=== PATIENT | female | born 2000 | race Two or more races ===

== ENCOUNTER 2022-02-11 20:03 | Emergency (ER) | payer OTHER ==
[2022-02-11] MEDS ORDERED: IBUPROFEN 800 MG TABLET PO STA (20:32)
--- NOTE | 2022-02-11 21:11 | XRAY Report ---
PROCEDURE: Ankle 3 View LT INDICATIONS: Twisted L ankle, c/o pain swelling. TECHNIQUE: 3 views of the ankle were acquired. COMPARISON: None FINDINGS: Bones: There is a subtle cortical irregularity involving the distal, medial margin of the fibula seen only on the frontal view. Otherwise, no definite acute fracture seen in the left ankle. Normal align ment. Joint spaces are maintained. Ankle mortise is normally aligned. No suspicious bony lesions. Soft tissues: No tibiotalar joint effusion. Achilles tendon appears normal. There is lateral malle olus soft tissue swelling. IMPRESSION: Subtle, cortical regularity involving the distal, medial margin of the fibula which may be artifactual versus a nondisplaced fracture. There is overlying soft tissue swelling of the lateral malleolus. Recommend immobilization and repeat imaging in 10-14 days. Reviewed by: Bentley Carpenter MD on 02/11/2022 9:10 PM PDT Approved by: Bentley Carpenter MD on 02/11/2022 9:10 PM PDT Station ID: [id number]
--- NOTE | 2022-02-11 21:12 | XRAY Report ---
PROCEDURE: Foot 3 View LT INDICATIONS: L foot xray TECHNIQUE: 3 views of the foot were acquired. COMPARISON: None FINDINGS: Bones: No fractures or dislocations. No suspicious bony lesions. Soft tissues: No tibiotalar joint effusion. Achilles tendon appears normal. IMPRESSION: Left foot without acute fracture or dislocation. If there is persistent clinical concern for a radiographically occult fracture, recommend immobilizat ion and repeat imaging in 10 to 14 days. Reviewed by: Bentley Carpenter MD on 02/11/2022 9:10 PM PDT Approved by: Bentley Carpenter MD on 02/11/2022 9:10 PM PDT Station ID: [id number]
--- NOTE | 2022-02-11 21:29 | ED Physician Documentation ---
PD HPI LOWER EXT INJURY - Stated complaint Stated Complaint: LT ANKLE PX - Chief complaint Chief Complaint: Trauma Ext - History obtained from History obtained from: Patient - History of Present Illness PD HPI LOW EXT INJURY LOCATION: Left, Ankle, Foot Pain level max: 9 Pain level now: 6 Improved by: Rest Worsened by: Moving, Palpating Associated symptoms: Swelling. No: Weakness, Numbness, Tingling Contributing factors: No: Anticoagulated, Prior ortho surgery - Additional information Additional information: Patient is a 21-year-old female who presents to the emergency department complaint of left ankle pain. 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 She states that today she was stepping out of her work boots when she stumbled and caused pain to the left ankle. Worse with movement, better with rest. Noted swelling. Review of Systems Constitutional: denies: Fever GI: denies: Vomiting, Diarrhea : denies: Now EGA Skin: denies: Rash PD PAST MEDICAL HISTORY - Past Medical History Past Medical History: No - Past Surgical History Past Surgical History: No - Present Medications Home Medications: Ambulatory Orders Medication Instructions Recorded Confirmed No Known Home Medications 02/11/22 02/11/22 - Allergies Allergies/Adverse Reactions: Allergies Allergy/AdvReac Type Severity Reaction Status Date / Time No Known Drug Allergies Allergy Verified 02/11/22 20:11 - Social History Does the pt smoke?: No Smoking Status: Never smoker Does the pt drink ETOH?: No Does the pt have substance abuse?: No - Immunizations Immunizations are current?: Yes PD ED PE NORMAL - Vitals Vital signs reviewed: Yes - General General: Alert and oriented X 3, No acute distress - HEENT HEENT: Moist mucous membranes - Neck Neck: Supple, no meningeal sign - Respiratory Respiratory: No respiratory distress - Derm Derm: Warm and dry - Extremities Extremities: Other (Tender to palpation over the medial malleolus of the left ankle. Also mild tenderness over the medial aspect of the foot. Mild tenderness over the lateral malleolus as well. Mild swelling. Neurovascularly intact. Otherwise normal examination of the left lower extremity, foot and ankle.) - Neuro Neuro: Alert and oriented X 3 Results - Vitals Vitals: Vital Signs - 24 hr 02/11/22 20:08 Temperature 36.6 C Heart Rate 97 Respiratory 16 Rate Blood Pressure 122/83 H O2 Saturation 100 Oxygen O2 Source Room air - Rads (name of study) Left ankle x-ray Radiology: Final report received, EMP read contemporaneously, See rad report L foot xray Radiology: Final report received, EMP read contemporaneously, See rad report Procedures - Splint (location) L ankle/foot Splint applied by: Physician, Tech Type of splint: Short leg, Posterior Other: Patient tolerated well, No complications, Neurovascular intact, Crutches provided PD MEDICAL DECISION MAKING - ED course Complexity details: reviewed results, re-evaluated patient, considered differential, d/w patient ED course: 21-year-old female presents with left ankle pain. Initial injury was in November, reinjured tonight. Possible subtle cortical irregularity of the medial aspect of the left fibula. We will treat as potential nondisplaced fracture. Placed in a short leg posterior splint. We will have her follow-up with orthopedics for further care. Pain well controlled with Motrin. Patient counseled regarding signs and symptoms for which I believe and urgent re- evaluation would be necessary. Patient with good understanding of and agreement to plan and is comfortable going home at this time This document was made in part using voice recognition software. While efforts are made to proofread this document, sound alike and grammatical errors may occur. IMPRESSION: Subtle, cortical regularity involving the distal, medial margin of the fibula which may be artifactual versus a nondisplaced fracture. There is overlying soft tissue swelling of the lateral malleolus. Recommend immobilization and repeat imaging in 10-14 days. IMPRESSION: Left foot without acute fracture or dislocation. If there is persistent clinical concern for a radiographically occult fracture, recommend immobilization and repeat imaging in 10 to 14 days. Departure - Departure Disposition: 01 Home, Self Care Clinical Impression: Ankle injury Qualifiers: Encounter type: initial encounter Laterality: left Qualified Code(s): S99.912A - Unspecified injury of left ankle, initial encounter Condition: Good Instructions: ED Fx Ankle Lateral Malleolus Follow-Up: [facility] [Provider Group] - Within 1 week Comments: Stay in the splint and on crutches until released by orthopedics. On your x-ray there is a subtle cortical irregularity involving the distal, medial margin of the fibula which may be artifactual versus nondisplaced fracture. There is soft tissue swelling as well. Recommend repeat x-ray in 10 to 14 days. I would use Motrin or Tylenol as needed for pain.
[2022-02-11 22:07] VITALS: BP 120/78
== END 2022-02-11 22:07 | disposition home or self-care (01) ==
LOC: ED 20:03
DX: M25.572 Pain in left ankle and joints of left foot (principal)
CPT/HCPCS: 29515; 73610; 73630; 99283; 99284; A9270

== ENCOUNTER 2023-06-09 18:38 | Emergency (ER) | payer OTHER ==
[2023-06-09 18:45] VITALS: BP 126/74; O2SAT 97
--- NOTE | 2023-06-09 19:50 | ED Physician Documentation ---
PD HPI BACK PAIN - Stated complaint Stated Complaint: BACK PX - Chief complaint Chief Complaint: Back Pain - History obtained from History obtained from: Patient - History of Present Illness Timing - onset: How many weeks ago (1) Timing - duration: Weeks (1) Timing - details: Gradual onset Pain level max: 6 Pain level now: 6 Location: Lower, Right Quality: Pain, Spasm, Similar to prior episodes Associated symptoms: No: Fever, Weakness, Numbness, Incontinent of urine, Unable to urinate, Hematuria, Incontinent of stool Improves with: Rest Worsened by: Movement, Twisting Contributing factors: Lifting. No: Trauma, Anticoagulated, Cancer, IVDA, Out of meds - Additional information Additional information: Patient is a 23-year-old female who presents to the emergency department with ongoing back pain for the past week. 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 No loss of bowel or bladder control. No trauma. No numbness or tingling. Worse with movement, better with rest. [place] states [place] said that if she still has pain in a few days she should go to the ER. Patient is not , breast-feeding or trying to become . Review of Systems Constitutional: denies: Fever, Chills : denies: Dysuria, Frequency, Hesitancy, Now EGA Skin: denies: Rash PD PAST MEDICAL HISTORY - Past Medical History Past Medical History: No - Past Surgical History Past Surgical History: No - Present Medications Home Medications: Ambulatory Orders Medication Instructions Recorded Confirmed Meloxicam [Mobic] 7.5 mg PO BID PRN #20 tablet 06/09/23 methocarbamoL [Robaxin] 500 mg PO Q6H PRN #20 tablet 06/09/23 - Allergies Allergies/Adverse Reactions: Allergies Allergy/AdvReac Type Severity Reaction Status Date / Time No Known Drug Allergies Allergy Verified 06/09/23 18:41 - Social History Does the pt smoke?: No Smoking Status: Never smoker Does the pt drink ETOH?: No Does the pt have substance abuse?: No - Immunizations Immunizations are current?: Yes PD ED PE NORMAL - Vitals Vital signs reviewed: Yes - General General: Alert and oriented X 3, No acute distress - HEENT HEENT: Moist mucous membranes - Neck Neck: Supple, no meningeal sign - Cardiac Cardiac: RRR, Strong equal pulses - Respiratory Respiratory: No respiratory distress, Clear bilaterally - Abdomen Abdomen: Soft, Non tender, Non distended - Back Back: No spinal TTP (No midline tenderness to palpation or percussion. No step- off or deformity. Paraspinal spasm right low lumbar. Reproduces her pain.) - Derm Derm: Warm and dry - Extremities Extremities: No edema - Neuro Neuro: Alert and oriented X 3, No motor deficit, No sensory deficit, Other (Normal bilateral lower extremity patellar and ankle jerk reflexes. Normal great toe extension bilaterally. no saddle anesthesia) - Psych Psych: Normal mood, Normal affect Results - Vitals Vitals: Vital Signs - 24 hr 06/09/23 18:41 Temperature 36.5 C Heart Rate 80 Respiratory 16 Rate Blood Pressure 126/74 O2 Saturation 97 Oxygen O2 Source Room air PD Medical Decision Making - ED course Complexity details: considered differential (No cauda equina, no spinal epidural abscess, no fracture, no aortic dissection or evidence of aneursym rupture), d/w patient ED course: 23-year-old female with what appears to be a back strain, likely from lifting heavy objects at work. Has paraspinal spasm on exam. Will place on anti-infla mmatories and muscle relaxants. No evidence of cauda equina, epidural abscess. No indication for emergent neuroimaging. No focal neurological deficits. Patient counseled regarding signs and symptoms for which I believe and urgent re-evaluation would be necessary. Patient with good understanding of and agreement to plan and is comfortable going home at this time This document was made in part using voice recognition software. While efforts are made to proofread this document, sound alike and grammatical errors may occur. Departure - Departure Disposition: 01 Home, Self Care Clinical Impression: Back strain Qualifiers: Encounter type: initial encounter Qualified Code(s): S39.012A - Strain of muscle, fascia and tendon of lower back, initial encounter Condition: Good Instructions: ED Sprain Strain Lumbar Follow-Up: [facility] [Provider Group] - Within 1 week Prescriptions: Meloxicam [Mobic] 7.5 mg PO BID PRN #20 tablet PRN Reason: Pain methocarbamoL [Robaxin] 500 mg PO Q6H PRN #20 tablet PRN Reason: muscle spasm Comments: Your prescriptions were sent to the [facility] pharmacy. You can use the medic ations as needed at home for pain. Please follow-up with your doctor for further care. Do not drive or operate heavy machinery while taking the Robaxin. Forms: Activity restrictions Discharge Date/Time: 06/09/23 20:12
[2023-06-09] MEDS: KETOROLAC 60 MG/2 ML VIAL IM STA (19:54)
[2023-06-09] MEDS: methocarbamoL 500 MG TABLET PO STA (19:55)
== END 2023-06-09 20:12 | disposition home or self-care (01) ==
LOC: ED 18:38
DX: S39.012A Strain of muscle, fascia and tendon of lower back, initial encounter (principal); X58.XXXA Exposure to other specified factors, initial encounter
CPT/HCPCS: 96372; 99283

== ENCOUNTER 2024-01-26 08:04 | Emergency (ER) | payer OTHER ==
--- NOTE | 2024-01-26 08:41 | ED Physician Documentation ---
PD HPI NVD - Stated complaint Stated Complaint: STOMACH PX - Chief complaint Chief Complaint: Abd Pain - History obtained from History obtained from: Patient - History of Present Illness Timing - onset: Yesterday (early afternoon about 1 pm, being about 3 hours after eating undercooked fried chicken. No URI symptoms. Onset abd cramping, nausea, vomiting multiple times and diarrhea over a dozen times. Feeling generally weak.) Timing - details: Abrupt onset, Still present Associated symptoms: Abdominal pain, Loss of appetite. No: Fever, Near syncope / syncope Contributing factors: Bad food. No: Sick contact, Travel Similar symptoms before: Has not had sx before Recently seen: Not recently seen Review of Systems Constitutional: reports: Myalgias, Fatigue. denies: Fever, Chills Nose: denies: Rhinorrhea / runny nose, Congestion Throat: denies: Sore throat Respiratory: denies: Cough GI: reports: Abdominal Pain (intermittent moderate cramping.), Nausea, Vomiting, Diarrhea. denies: Abdominal Swelling, Hematemesis, Bloody / black stool PD PAST MEDICAL HISTORY - Past Medical History Cardiovascular: None GI: None - Past Surgical History Past Surgical History: No - Present Medications Home Medications: Ambulatory Orders Medication Instructions Recorded Confirmed Diphenoxylate/Atropine [Lomotil] 1 each PO QID PRN #12 tablet 01/26/24 HYDROcod/ACETAM 5/325 [Brewster 5/325] 1 ea PO Q6H PRN #10 tablet 01/26/24 Ondansetron Odt [Zofran] 4 mg TL Q6H PRN #10 tablet 01/26/24 - Allergies Allergies/Adverse Reactions: Allergies Allergy/AdvReac Type Severity Reaction Status Date / Time No Known Drug Allergies Allergy Verified 01/26/24 08:17 - Social History Does the pt smoke?: No Smoking Status: Never smoker Does the pt drink ETOH?: No Does the pt have substance abuse?: No - Immunizations Immunizations are current?: Yes PD ED PE NORMAL - Vitals Vital signs reviewed: Yes - General General: Alert and oriented X 3, Well developed/nourished, Other (appears uncomfortable with nausea and lower to mid abd cramping at times. ) - HEENT HEENT: Pharynx benign - Neck Neck: Supple, no meningeal sign, No adenopathy - Cardiac Cardiac: RRR, No murmur - Respiratory Respiratory: No respiratory distress, Clear bilaterally - Abdomen Abdomen: Normal bowel sounds, Soft, Non distended, No organomegaly, Other (tender without guarding nor percussion tender mid to left abd. ) - Female Female : Deferred - Rectal Rectal: Deferred - Back Back: No CVA TTP - Derm Derm: Normal color, Warm and dry - Neuro Neuro: Alert and oriented X 3, No motor deficit, Normal speech Results - Vitals Vitals: Vital Signs - 24 hr 01/26/24 01/26/24 01/26/24 08:06 09:57 11:36 Temperature 36.6 C 36.6 C Heart Rate 86 88 94 Respiratory 18 18 18 Rate Blood Pressure 106/64 110/62 97/51 L O2 Saturation 99 99 99 01/26/24 13:12 Temperature Heart Rate 96 Respiratory 18 Rate Blood Pressure 104/94 H O2 Saturation 100 Oxygen O2 Source Room air - Labs Labs: Laboratory Tests 01/26/24 01/26/24 01/26/24 08:26 08:26 08:37 WBC 14.4 H RBC 4.89 Hgb 14.9 Hct 44.6 MCV 91.2 MCH 30.5 MCHC 33.4 RDW 12.8 Plt Count 297 MPV 8.9 Neut # (Auto) 12.4 H Lymph # (Auto) 0.9 L Morgan # (Auto) 1.0 Eos # (Auto) 0.1 Baso # (Auto) 0.0 Absolute Nucleated RBC 0.00 Nucleated RBC % 0.0 Sodium Potassium Chloride Carbon Dioxide Anion Gap BUN Creatinine Estimated GFR (MDRD) Glucose Calcium Magnesium Total Bilirubin AST ALT Alkaline Phosphatase Total Protein Albumin Globulin Albumin/Globulin Ratio Lipase Urine Color YELLOW Urine Clarity CLEAR Urine pH 5.5 Ur Specific Ahmeek 1.025 Urine Protein NEGATIVE Urine Glucose (UA) NEGATIVE Urine Ketones NEGATIVE Urine Occult Blood SMALL H Urine Nitrite NEGATIVE Urine Bilirubin NEGATIVE Urine Urobilinogen 0.2 (NORMAL) Ur Leukocyte Esterase NEGATIVE Urine RBC None Seen Urine WBC 0-3 Ur Squamous Epith Cells NONE SEEN Urine Bacteria None Seen Ur Microscopic Review INDICATED Urine Culture Comments NOT INDICATED Urine HCG, Qual NEGATIVE 01/26/24 01/26/24 08:37 08:37 WBC RBC Hgb Hct MCV MCH MCHC RDW Plt Count MPV Neut # (Auto) Lymph # (Auto) Morgan # (Auto) Eos # (Auto) Baso # (Auto) Absolute Nucleated RBC Nucleated RBC % Sodium 137 Potassium 4.4 Chloride 105 Carbon Dioxide 24 Anion Gap 8.0 BUN 14 Creatinine 0.6 Estimated GFR (MDRD) 126 Glucose 92 Calcium 9.9 Magnesium 1.7 Total Bilirubin 0.8 AST 19 ALT 23 Alkaline Phosphatase 75 Total Protein 7.8 Albumin 4.7 Globulin 3.1 Albumin/Globulin Ratio 1.5 Lipase 10 L Urine Color Urine Clarity Urine pH Ur Specific Ahmeek Urine Protein Urine Glucose (UA) Urine Ketones Urine Occult Blood Urine Nitrite Urine Bilirubin Urine Urobilinogen Ur Leukocyte Esterase Urine RBC Urine WBC Ur Squamous Epith Cells Urine Bacteria Ur Microscopic Review Urine Culture Comments Urine HCG, Qual PD Medical Decision Making - ED course Complexity details: re-evaluated patient (less nausea and decreased pain. Exam still with some tenderness mid to left lower abd without guarding nor percussion tenderness. Not tender RLQ nor RUQ at all. The pattern still seems acute GE or food toxin mediated and shared discussion with pt to not do imaging at this time. ), considered differential, d/w patient Drug Therapy Requiring Monitoring for Toxicity: given IV fluids, ZOfran toradol and dilaudid intially, iwth improvement in nausea and pain but still present. Doses then of Inapsine and repeat pain meds with general improvement still. Lytes and CBC are appearing okay. Departure - Departure Disposition: 01 Home, Self Care Clinical Impression: Nausea vomiting and diarrhea, Left lower quadrant abdominal pain Condition: Stable Record reviewed to determine appropriate education?: Yes Instructions: ED Gastroenteritis Vs Food Poison Follow-Up: [facility] [Provider Group] Prescriptions: Diphenoxylate/Atropine [Lomotil] 1 each PO QID PRN #12 tablet PRN Reason: Diarrhea HYDROcod/ACETAM 5/325 [Brewster 5/325] 1 ea PO Q6H PRN #10 tablet PRN Reason: Pain Ondansetron Odt [Zofran] 4 mg TL Q6H PRN #10 tablet PRN Reason: Nausea / Vomiting Comments: Small frequent fluids and bland foods such as starches and carbohydrates usually are best with these type of symptoms. Rest and frequent fluids and small amounts initially and progress as tolerated. Ondansetron if needed for nausea. Lomotil if needed for diarrhea. Tylenol or ibuprofen if needed for pains and cramps in Tylenol may be better tolerated on the stomach. At hydrocodone/acetaminophen if needed for worse pains or cramps at times. I would anticipate needing this just for a day or so until this is more resolving. Follow-up with your primary if not resolved in the next day or 2 and return if worse or more localized pain to the right or other concerns. I sent your prescription to [facility] pharmacy. I am prescribing a short course of narcotic pain medication for you. These are potentially dangerous and addictive medications that should be used carefully. These medications may constipate you. Take an [id number] stool softener such as docusate twice daily with plenty of water while taking these medications. If you go 24 hours without a bowel movement, take [id number] MiraLAX, per package instructions. Do not drink or drive while taking these medications. If you received narcotic or sedating medications while in the emergency department do not drive for 24 hours. Store this medication in a safe, secure place and out of reach of children. It is a violation of federal law to give or sell this medication to another person or to use in a manner other than prescribed. The ED will not refill narcotic prescriptions, including prescriptions lost or stolen. You can dispose of unwanted medications at the [facility]'s office or at several pharmacies such as [facility]. Forms: PCP List, Activity restrictions Discharge Date/Time: 01/26/24 13:26
[2024-01-26 08:44] LABS: BASOPHILS % (AUTO) 0.2 %; EOSINOPHILS # (AUTO) 0.1 10^3/uL (0.0-0.7); EOSINOPHILS % (AUTO) 0.9 %; HCT - HEMATOCRIT 44.6 % (37.0-47.0); HGB - HEMOGLOBIN 14.9 g/dL (12.0-16.0); LYMPHOCYTES # (AUTO) 0.9 10^3/uL (1.5-3.5); LYMPHOCYTES % (AUTO) 6.1 %; MEAN CORPUSCULAR HEMOGLOBIN 30.5 pg (27.0-31.0); MEAN CORPUSCULAR HGB CONC 33.4 g/dL (32.0-36.0); MEAN CORPUSCULAR VOLUME 91.2 fL (81.0-99.0); MEAN PLATELET VOLUME 8.9 fL (7.9-10.8); MONOCYTES % (AUTO) 6.6 %; NEUTROPHILS # (AUTO) 12.4 10^3/uL (1.5-6.6); NEUTROPHILS % (AUTO) 85.8 %; PLT - PLATELET COUNT 297 10^3/uL (130-450); RED BLOOD COUNT 4.89 10^6/uL (4.20-5.40); RED CELL DISTRIBUTION WIDTH 12.8 % (12.0-15.0); WHITE BLOOD COUNT 14.4 x10^3/uL (4.8-10.8)
[2024-01-26 08:50] LABS: BILIRUBIN,URINE NEGATIVE (NEGATIVE); CLARITY,URINE CLEAR (CLEAR); GLUCOSE, URINE (UA) NEGATIVE (NEGATIVE); KETONES,URINE (UA) NEGATIVE (NEGATIVE); LEUKOCYTE ESTERASE, URINE NEGATIVE (NEGATIVE); NITRITE,URINE NEGATIVE (NEGATIVE); OCCULT BLOOD,URINE SMALL (NEGATIVE); PH,URINE 5.5 PH (5.0-7.5); PROTEIN,URINE NEGATIVE (NEGATIVE); UROBILINOGEN,URINE 0.2 (NORMAL) E.U./dL (NORMAL)
[2024-01-26 08:52] LABS: HCG UR QUAL NEGATIVE
[2024-01-26 09:00] LABS: ALBUMIN 4.7 g/dL (3.2-5.5); ALBUMIN/GLOBULIN RATIO 1.5 (1.0-2.2); BILIRUBIN,TOTAL 0.8 mg/dL (0.2-1.0); CALCIUM 9.9 mg/dL (8.5-10.3); CREATININE 0.6 mg/dL (0.6-1.3); POTASSIUM 4.4 mmol/L (3.5-4.5); TOTAL PROTEIN 7.8 g/dL (6.4-8.9)
[2024-01-26 09:11] LABS: BACTERIA,URINE None Seen /HPF (None Seen); RBC,URINE None Seen /HPF (0-5); SQUAMOUS EPITHELIAL CELL,UR NONE SEEN (<= Few); WBC,URINE 0-3 /HPF (0-5)
[2024-01-26] MEDS: MORPHINE 2 MG/ML CARPUJECT IVP STA (09:15)
[2024-01-26] MEDS: KETOROLAC 15 MG/ML VIAL IVP STA (09:15)
[2024-01-26] MEDS: ONDANSETRON 4 MG/2 ML VIAL IVP STA (09:16)
[2024-01-26] MEDS: SODIUM CHLORIDE 0.9% 1,000 ML IV STA ×2 (09:16→09:26)
[2024-01-26] MEDS: LOPERAMIDE 2 MG CAPSULE PO STA (09:16)
[2024-01-26] MEDS: HYDROmorphone 1 MG/ML CARPUJECT IVP STA ×2 (11:56→13:17)
[2024-01-26] MEDS: DROPERIDOL 5 MG/2 ML VIAL IVP STA (11:56)
[2024-01-26 13:26] VITALS: BP 104/94; O2SAT 100
== END 2024-01-26 13:26 | disposition home or self-care (01) ==
LOC: ED 08:04
DX: R10.32 Left lower quadrant pain (principal); R11.2 Nausea with vomiting, unspecified; R19.7 Diarrhea, unspecified; Z79.899 Other long term (current) drug therapy
CPT/HCPCS: 36415; 80053; 81001; 81025; 83690; 83735; 85025; 96374; 96375; 99283; A9270; J1170; 81003; 87086

== ENCOUNTER 2024-02-16 12:21 | Emergency (ER) | payer OTHER ==
[2024-02-16 12:29] VITALS: BP 119/66; O2SAT 98
--- NOTE | 2024-02-16 13:03 | XRAY Report ---
PROCEDURE: Finger(s) LT INDICATIONS: Trauma TECHNIQUE: AP hand, 2 views of the first finger(s) acquired. COMPARISON: None. FINDINGS: Bones: No fractures or dislocations. Joint spaces are maintained. No suspicious bony lesions. Soft tissues: No suspicious soft tissue calcifications or masses. No radiopaque foreign body. IMPRESSION: No acute bony abnormality. If pain persists with conservative management, consider repeat radiographs in 10-14 days or cross-sectional imaging. Reviewed by: Dangelo Alvarado MD on 02/16/2024 1:02 PM PDT Approved by: Dangelo Alvarado MD on 02/16/2024 1:02 PM PDT Station ID: [id number]
--- NOTE | 2024-02-16 13:05 | ED Physician Documentation ---
PD HPI UPPER EXT INJURY - Stated complaint Stated Complaint: LT HAND INJ - Chief complaint Chief Complaint: Trauma Ext - Additonal information Additional information: 22-year-old female presents here emergency department for left thumb pain. Patient says that she attempted to pop her left thumb 2 days ago and since then has been experiencing increased tenderness to the volar aspect of the thumb. 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 No fevers or chills no inflammation no dislocation no other trauma. PD PAST MEDICAL HISTORY - Past Medical History Past Medical History: Yes Cardiovascular: None Respiratory: None Neuro: None Endocrine/Autoimmune: None GI: None STRAWBERRY GROWER: None : None HEENT: None Psych: None Musculoskeletal: None Derm: Other drug resistant infections - Past Surgical History Past Surgical History: No - Present Medications Home Medications: Ambulatory Orders Medication Instructions Recorded Confirmed Diphenoxylate/Atropine [Lomotil] 1 each PO QID PRN #12 tablet 01/26/24 02/16/24 HYDROcod/ACETAM 5/325 [[place] 5/325] 1 ea PO Q6H PRN #10 tablet 01/26/24 02/16/24 Ondansetron Odt [Zofran] 4 mg TL Q6H PRN #10 tablet 01/26/24 02/16/24 - Allergies Allergies/Adverse Reactions: Allergies Allergy/AdvReac Type Severity Reaction Status Date / Time No Known Drug Allergies Allergy Verified 02/16/24 12:24 - Social History Does the pt smoke?: No Smoking Status: Never smoker Does the pt drink ETOH?: No Does the pt have substance abuse?: No - Immunizations Immunizations are current?: Yes - POLST Patient has POLST: No PD ED PE NORMAL - Vitals Vital signs reviewed: Yes - General General: Alert and oriented X 3, No acute distress, Well developed/nourished - Derm Derm: Normal color, Warm and dry, No rash - Extremities Extremities: Other (Left thumb: No inflammation, full range of motion of left thumb, no crepitus or popping with any bending of the left thumb. CMS intact, capillary refill < 2 seconds) Results - Vitals Vitals: Vital Signs - 24 hr 02/16/24 12:24 Temperature 36.3 C L Heart Rate 84 Respiratory 16 Rate Blood Pressure 119/66 O2 Saturation 98 Oxygen O2 Source Room air - Rads (name of study) Left finger x-rays Relevant Findings:: Final report received, EMP independent interpretation of test, Other (Left thumb does not show any acute bony abnormality or findings.) PD Medical Decision Making - ED course ED course: 23-year-old female presents emergency department for left thumb pain. Differentials include but not limited to, sprain, fracture, tendinitis, contusion. X-rays were complete of the left thumb and there were no acute fractures or bony abnormalities seen. I believe that pain is most likely from the tendon being overstretched or contusion. She has full range of motion to the left thumb there is no inflammation of the left thumb. Patient requested an Josue wrap to help her hand at work she was offered Tylenol and ibuprofen but kindly declined and said that she had some at home. Patient was given return precautions and told to follow-up with her primary care provider for further evaluation as needed. Departure - Departure Disposition: 01 Home, Self Care Clinical Impression: Pain of left thumb Instructions: Wrist Supination Strength Comments: Thank you for trusting us with your care. We have completed x-rays of your left thumb and we are not seeing any fractures or obvious abnormalities at this time. If you are still experiencing worsening pain after 10 days from the injury you can repeat x-rays for further evaluation of a possible fracture. At this point in time we offered you Tylenol ibuprofen but you kindly declined and said that you had some at home so we will discharge you with an Josue wrap. Make sure that you are taking this off periodically throughout the day to stretch her hand and do some gentle range of motion exercises to the left thumb. Please follow-up with your primary care provider as needed. Wishing a speedy recovery. Forms: PCP List Discharge Date/Time: 02/16/24 13:22
== END 2024-02-16 13:22 | disposition home or self-care (01) ==
LOC: ED 12:21
DX: M79.645 Pain in left finger(s) (principal)
CPT/HCPCS: 99283

== ENCOUNTER 2024-02-19 07:45 | Emergency (ER) | payer OTHER ==
--- NOTE | 2024-02-19 08:12 | ED Physician Documentation ---
PD HPI FEMALE - Stated complaint Stated Complaint: BODYACHES,WEAK - Chief complaint Chief Complaint: General - History obtained from History obtained from: Patient - History of Present Illness Timing - onset: How many days ago (4-5) Timing - duration: Days (4-5) Timing - details: Abrupt onset, Still present (feeling weak, tired, nausea, and achey for 4-5 days. Some lower abd cramping. She did home test 2 days ago that was weakly positive.) Associated symptoms: No: Fever, Vaginal bleeding, Vaginal discharge, Genital sore/lesion, Dysuria Contributing factors: (estimates 5 weeks by dates. She and spouse have been trying to get .). 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 denies: Diarrhea : reports: Dysuria, Frequency PD PAST MEDICAL HISTORY - Past Medical History Cardiovascular: None Respiratory: None Neuro: None Endocrine/Autoimmune: None GI: None PRODUCT SUPPORT SALES REPRESENTATIVE: None : None HEENT: None Psych: None Musculoskeletal: None Derm: Other drug resistant infections - Past Surgical History Past Surgical History: No - Present Medications Home Medications: Ambulatory Orders Medication Instructions Recorded Confirmed Ibuprofen [Motrin] 600 mg PO TID PRN #25 tab 02/19/24 Ondansetron Odt [Zofran] 4 mg TL Q6H PRN #10 tablet 02/19/24 cephALEXin [Keflex] 500 mg PO TID #15 cap 02/19/24 - Allergies Allergies/Adverse Reactions: Allergies Allergy/AdvReac Type Severity Reaction Status Date / Time No Known Drug Allergies Allergy Verified 02/19/24 08:30 - Social History Does the pt smoke?: No Smoking Status: Never smoker Does the pt drink ETOH?: No Does the pt have substance abuse?: No - Immunizations Immunizations are current?: Yes - POLST Patient has POLST: No PD ED PE NORMAL - Vitals Vital signs reviewed: Yes - General General: Alert and oriented X 3, No acute distress, Well developed/nourished - HEENT HEENT: Moist mucous membranes, Pharynx benign - Neck Neck: Supple, no meningeal sign - Cardiac Cardiac: RRR, No murmur - Respiratory Respiratory: Clear bilaterally - Abdomen Abdomen: Soft, Non tender - Derm Derm: Normal color, Warm and dry - Extremities Extremities: No tenderness to palpate, Normal ROM s pain - Neuro Neuro: Alert and oriented X 3, No motor deficit, No sensory deficit, Normal speech Results - Vitals Vitals: Vital Signs - 24 hr 02/19/24 02/19/24 02/19/24 08:00 10:06 12:00 Temperature 36.6 C Heart Rate 94 75 79 Respiratory 18 15 16 Rate Blood Pressure 111/64 103/62 117/66 O2 Saturation 98 99 99 02/19/24 12:13 Temperature 37.1 C Heart Rate 79 Respiratory 16 Rate Blood Pressure 117/66 O2 Saturation 99 Oxygen O2 Source Room air - Labs Labs: Laboratory Tests 02/19/24 02/19/24 02/19/24 08:10 08:33 08:37 WBC 10.2 RBC 4.49 Hgb 13.5 Hct 41.1 MCV 91.5 MCH 30.1 MCHC 32.8 RDW 12.8 Plt Count 256 MPV 8.9 Neut # (Auto) 7.3 H Lymph # (Auto) 1.5 [place] # (Auto) 1.1 H Eos # (Auto) 0.3 Baso # (Auto) 0.0 Absolute Nucleated RBC 0.00 Nucleated RBC % 0.0 Sodium Potassium Chloride Carbon Dioxide Anion Gap BUN Creatinine Estimated GFR (MDRD) Glucose Calcium Total Bilirubin AST ALT Alkaline Phosphatase Total Protein Albumin Globulin Albumin/Globulin Ratio Lipase Beta HCG, Quant Urine Color YELLOW Urine Clarity SL. CLOUDY Urine pH 7.0 Ur Specific Stark 1.010 Urine Protein NEGATIVE Urine Glucose (UA) NEGATIVE Urine Ketones NEGATIVE Urine Occult Blood NEGATIVE Urine Nitrite NEGATIVE Urine Bilirubin NEGATIVE Urine Urobilinogen 0.2 (NORMAL) Ur Leukocyte Esterase MODERATE H Urine RBC 0-5 Urine WBC 6-10 H Ur Squamous Epith Cells FEW Squamous Urine Bacteria Rare Ur Microscopic Review INDICATED Urine Culture Comments INDICATED Urine HCG, Qual Nasal Adenovirus (PCR) NOT DETECTED Nasal B. parapertussis DNA (PCR) NOT DETECTED Nasal Coronavir 229E PCR NOT DETECTED Nasal Coronavir HKU1 PCR NOT DETECTED Nasal Coronavir NL63 PCR NOT DETECTED Nasal Coronavir OC43 PCR NOT DETECTED Nasal Enterovir/Rhinovir PCR NOT DETECTED Nasal Influenza B PCR NOT DETECTED Nasal Influenza A PCR NOT DETECTED Nasal Parainfluen 1 PCR NOT DETECTED Nasal Parainfluen 2 PCR NOT DETECTED Nasal Parainfluen 3 PCR NOT DETECTED Nasal Parainfluen 4 PCR NOT DETECTED Nasal RSV (PCR) NOT DETECTED Nasal B.pertussis DNA PCR NOT DETECTED Nasal C.pneumoniae (PCR) NOT DETECTED Trevor Human Metapneumo PCR NOT DETECTED Nasal M.pneumoniae (PCR) NOT DETECTED Nasal SARS-CoV-2 (PCR) NOT DETECTED 02/19/24 02/19/24 08:37 09:06 WBC RBC Hgb Hct MCV MCH MCHC RDW Plt Count MPV Neut # (Auto) Lymph # (Auto) [place] # (Auto) Eos # (Auto) Baso # (Auto) Absolute Nucleated RBC Nucleated RBC % Sodium 136 Potassium 4.1 Chloride 104 Carbon Dioxide 26 Anion Gap 6.0 BUN 11 Creatinine 0.6 Estimated GFR (MDRD) 126 Glucose 97 Calcium 9.6 Total Bilirubin 0.6 AST 13 ALT 14 Alkaline Phosphatase 74 Total Protein 7.3 Albumin 4.6 Globulin 2.7 Albumin/Globulin Ratio 1.7 Lipase 16 Beta HCG, Quant < 0.6 Urine Color Urine Clarity Urine pH Ur Specific Stark Urine Protein Urine Glucose (UA) Urine Ketones Urine Occult Blood Urine Nitrite Urine Bilirubin Urine Urobilinogen Ur Leukocyte Esterase Urine RBC Urine WBC Ur Squamous Epith Cells Urine Bacteria Ur Microscopic Review Urine Culture Comments Urine HCG, Qual NEGATIVE Nasal Adenovirus (PCR) Nasal B. parapertussis DNA (PCR) Nasal Coronavir 229E PCR Nasal Coronavir HKU1 PCR Nasal Coronavir NL63 PCR Nasal Coronavir OC43 PCR Nasal Enterovir/Rhinovir PCR Nasal Influenza B PCR Nasal Influenza A PCR Nasal Parainfluen 1 PCR Nasal Parainfluen 2 PCR Nasal Parainfluen 3 PCR Nasal Parainfluen 4 PCR Nasal RSV (PCR) Nasal B.pertussis DNA PCR Nasal C.pneumoniae (PCR) Trevor Human Metapneumo PCR Nasal M.pneumoniae (PCR) Nasal SARS-CoV-2 (PCR) PD Medical Decision Making - ED course Complexity details: reviewed results (HCG serum is reading very low count. Improved preg test negative here. Could be blighted ov), re-evaluated patient (feeling improved with meds. Sad when I told her negative here now. ), considered differential (seems like viral URI, flu-like symptoms. But having some dysuria and has recent pregnncy tests.) Reviewed Lab Results: negative major viruses. US showing normal uturus without sings of . Departure - Departure Disposition: Home, Self Care Clinical Impression: Malaise and fatigue, UTI (urinary tract infection), Chemical Condition: Stable Record reviewed to determine appropriate education?: Yes Prescriptions: cephALEXin [Keflex] 500 mg PO TID #15 cap Ibuprofen [Motrin] 600 mg PO TID PRN #25 tab PRN Reason: Pain Ondansetron Odt [Zofran] 4 mg TL Q6H PRN #10 tablet PRN Reason: Nausea / Vomiting Comments: Your test both by blood test and urine is negative today. The ultrasound does not show any signs of in the uterus or tubes. No other abnormalities such as ovarian cysts or ruptured cyst etc. Both ovaries have normal flow. There is evidence of an infection in your urine and that may be accounting for some of your pains or cramps. Your viral panel test is negative and your basic blood count is good. The general fatigue and malaise symptoms that you are having still sound flulike but it could be in response to your body responding to the bladder infection. Stay well-hydrated. Tylenol every 4-6 hours if needed for fevers or pains. I would suggest some regular anti-inflammatories for the next several days to week as well such as ibuprofen 603 times a day. Add ondansetron if needed for nausea. Cephalexin 3 times a day for 5 days for the bladder infection. Considerations for your home test could be a false positive with a week positive finding on the test may have just been a false positive. Alternative to consider could have been an early fertilization that then passed through (blighted ovum). It can be hard to tell for sure and so the COAL SHOVELER sometimes refer to these as "chemical " which is most commonly felt to be a false positive test. I sent your prescriptions to your preferred pharmacy. I would anticipate improvement in your general symptoms over the next few days. Forms: PCP List Discharge Date/Time: 02/19/24 12:14
[2024-02-19] MEDS: ACETAMINOPHEN 500 MG TABLET PO STA (08:36)
[2024-02-19] MEDS: IBUPROFEN 600 MG TABLET PO STA (08:36)
[2024-02-19] MEDS: ONDANSETRON ODT 4 MG TABLET TL STA (08:37)
[2024-02-19 08:40] LABS: BASOPHILS % (AUTO) 0.4 %; EOSINOPHILS # (AUTO) 0.3 10^3/uL (0.0-0.7); EOSINOPHILS % (AUTO) 2.5 %; HCT - HEMATOCRIT 41.1 % (37.0-47.0); HGB - HEMOGLOBIN 13.5 g/dL (12.0-16.0); LYMPHOCYTES # (AUTO) 1.5 10^3/uL (1.5-3.5); LYMPHOCYTES % (AUTO) 14.3 %; MEAN CORPUSCULAR HEMOGLOBIN 30.1 pg (27.0-31.0); MEAN CORPUSCULAR HGB CONC 32.8 g/dL (32.0-36.0); MEAN CORPUSCULAR VOLUME 91.5 fL (81.0-99.0); MEAN PLATELET VOLUME 8.9 fL (7.9-10.8); MONOCYTES # (AUTO) 1.1 10^3/uL (0.0-1.0); MONOCYTES % (AUTO) 10.8 %; NEUTROPHILS # (AUTO) 7.3 10^3/uL (1.5-6.6); NEUTROPHILS % (AUTO) 71.7 %; PLT - PLATELET COUNT 256 10^3/uL (130-450); RED BLOOD COUNT 4.49 10^6/uL (4.20-5.40); RED CELL DISTRIBUTION WIDTH 12.8 % (12.0-15.0); WHITE BLOOD COUNT 10.2 x10^3/uL (4.8-10.8)
[2024-02-19 08:56] LABS: ALBUMIN 4.6 g/dL (3.2-5.5); ALBUMIN/GLOBULIN RATIO 1.7 (1.0-2.2); ALKALINE PHOSPHATASE 74 IU/L (42-121); ALT ALANINE AMINOTRANSFERASE 14 IU/L (10-60); AST ASPARTATE AMINOTRANSFERASE 13 IU/L (10-42); BILIRUBIN,TOTAL 0.6 mg/dL (0.2-1.0); BUN - BLOOD UREA NITROGEN 11 mg/dL (6-20); CALCIUM 9.6 mg/dL (8.5-10.3); CARBON DIOXIDE - CO2 26 mmol/L (21-32); CHLORIDE 104 mmol/L (101-111); CREATININE 0.6 mg/dL (0.6-1.3); GFR - MDRD 126 (>89); GLUCOSE 97 mg/dL (74-104); LIPASE 16 U/L (11-82); POTASSIUM 4.1 mmol/L (3.5-4.5); SODIUM 136 mmol/L (135-145); TOTAL PROTEIN 7.3 g/dL (6.4-8.9)
[2024-02-19 09:16] LABS: BILIRUBIN,URINE NEGATIVE (NEGATIVE); GLUCOSE, URINE (UA) NEGATIVE (NEGATIVE); KETONES,URINE (UA) NEGATIVE (NEGATIVE); LEUKOCYTE ESTERASE, URINE MODERATE (NEGATIVE); NITRITE,URINE NEGATIVE (NEGATIVE); OCCULT BLOOD,URINE NEGATIVE (NEGATIVE); PROTEIN,URINE NEGATIVE (NEGATIVE); UROBILINOGEN,URINE 0.2 (NORMAL) E.U./dL (NORMAL)
[2024-02-19 09:18] LABS: HCG UR QUAL NEGATIVE
[2024-02-19 09:18] LABS: CLARITY,URINE SL. CLOUDY (CLEAR)
[2024-02-19 09:23] LABS: BACTERIA,URINE Rare /HPF (None Seen); RBC,URINE 0-5 /HPF (0-5); SQUAMOUS EPITHELIAL CELL,UR FEW Squamous (<= Few)
[2024-02-19 09:44] LABS: B. PARAPERTUSSIS- RESP PCR PAN NOT DETECTED; B. PERTUSSIS- RESP PCR PANEL NOT DETECTED; C. PNEUMONIAE- RESP PCR PANEL NOT DETECTED; CORONAVIRUS 229E-RESP PCR NOT DETECTED; CORONAVIRUS HKU1-RESP PCR NOT DETECTED; CORONAVIRUS NL63-RESP PCR NOT DETECTED; CORONAVIRUS OC43-RESP PCR NOT DETECTED; HUMAN METAPNEUMOVIRUS NOT DETECTED; INFLUENZA A- RESP PCR PANEL NOT DETECTED; INFLUENZA B - RESP PCR PANEL NOT DETECTED; M. PNEUMONIAE- RESP PCR PANEL NOT DETECTED; PARAINFLUENZA VIRUS 1 NOT DETECTED; PARAINFLUENZA VIRUS 2 NOT DETECTED; PARAINFLUENZA VIRUS 3 NOT DETECTED; PARAINFLUENZA VIRUS 4 NOT DETECTED; RHINOVIRUS/ENTEROVIRUS NOT DETECTED; RSV- RESP PCR PANEL NOT DETECTED; SARS-CoV-2 -RESP PCR PANEL NOT DETECTED
--- NOTE | 2024-02-19 11:02 | Ultrasound Report ---
PROCEDURE: Pelvic w/Doppler Complete INDICATIONS: pos preg test at home. neg here. Lower pelvic pain TECHNIQUE: Real-time scanning was performed of the pelvic organs, with image documentation. A transabdominal ap proach was utilized. Duplex was utilized. COMPARISON: None. FINDINGS: Uterus: Uterus is anteverted and normal in size at 8.4 x 4.3 x 4.8 cm. The myometrium is homogeneou s. The endometrium measures 1.1 mm in combined thickness. No intrauterine identified. Ovaries: The right ovary measures 3.4 x 2.1 x 2.6 cm, with a calculated ovarian volume of 9.6 cc. T he left ovary measures 2.3 x 1.4 x 1.5 cm, with a calculated ovarian volume of 2.5 cc. The ovaries h ave a normal sonographic appearance. Less than 12 follicles can be seen in each ovary. No adnexal m asses are seen. No cystic lesions measuring greater than 3 cm. There is a dominant follicle of the ri ght ovary measuring 1.6 x 1.3 x 1.2 cm. No extrauterine identified. Other: No pathologic free abdominal or pelvic fluid. IMPRESSION: 1. No identifiable intrauterine x-ray . Recommend correlation with serial beta hCGs. Consider possible follow-up ultrasound in 1-2 weeks depe nding upon beta hCGs. Reviewed by: Darrick Rankin MD on 02/19/2024 11:00 AM PDT Approved by: Darrick Rankin MD on 02/19/2024 11:00 AM PDT Station ID: [id number]
[2024-02-19 11:07] VITALS: O2SAT 99
[2024-02-19] MEDS: HYDROcod/ACETAM 5/325 MG TABLET PO STA (12:04)
[2024-02-19] MEDS: cephALEXin 250 MG CAPSULE PO STA (12:04)
[2024-02-19 12:17] VITALS: BP 117/66
== END 2024-02-19 12:14 | disposition home or self-care (01) ==
LOC: ED 07:45
DX: N39.0 Urinary tract infection, site not specified (principal); R53.81 Other malaise; R53.83 Other fatigue
CPT/HCPCS: 36415; 76856; 80053; 81001; 81025; 83690; 84702; 85025; 87086; 87633; 93975; 99284; A9270; Q0162; 81003

== ENCOUNTER 2024-02-25 11:40 | Emergency (ER) | payer OTHER ==
--- NOTE | 2024-02-25 12:05 | ED Physician Documentation ---
PD HPI SKIN - Stated complaint Stated Complaint: NECK/LT ARM RASH - Chief complaint Chief Complaint: Wound - History obtained from History obtained from: Patient - History of Present Illness Timing - onset: How many days ago (several days of some itching/rash arms and around neck. Worse last night/today. No general hives. No oral swellling.) Timing - details: Gradual onset, Still present, Waxing and waning (more itching and prominent since yesterday. Also having persistent lower abd/left pelvic cramping, but midline as well. Some spotting bleeding but not menses per se.) Quality / character: Itchy, Discolored (red). No: Vesicular Contributing factors: Exposed to medication (has been on abx for UTI for the past week.), Exposed to food (she had some shrimp last week, and was possibly allergic to it as teen. However rash has persisted now for 3-4 days since that.) Recently seen: Emergency Dept (seen for lower abd cramping and spotting. Had faintly positive home preg test and here for eval. US was normal and HGC was negative here. On antibiotics for UTI the past week and has 1 dose left.) Review of Systems Constitutional: denies: Fever, Chills Nose: denies: Rhinorrhea / runny nose, Congestion Throat: denies: Sore throat Respiratory: denies: Dyspnea, Cough : reports: Missed period, Other (sexuall active and is trying to get with her partner.). denies: Discharge Skin: reports: Rash (antecubital areas and around neck. No new jewelry. 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 : None HEENT: None Psych: None Musculoskeletal: None Derm: Other drug resistant infections - Past Surgical History Past Surgical History: No - Present Medications Home Medications: Ambulatory Orders Medication Instructions Recorded Confirmed Ibuprofen [Motrin] 600 mg PO TID PRN #25 tab 02/19/24 02/25/24 Ondansetron Odt [Zofran] 4 mg TL Q6H PRN #10 tablet 02/19/24 02/25/24 cephALEXin [Keflex] 500 mg PO TID #15 cap 02/19/24 02/25/24 Betamethasone Dipropionate 1 applic TP BID #30 gm 02/25/24 Cetirizine [ZyrTEC] 10 mg PO BID #15 tablet 02/25/24 Norethindrone AC-Eth Estradiol 1 tab PO DAILY #1 each 02/25/24 [Loestrin 21 1.5-30 Tablet] dexAMETHasone [Decadron] 4 mg PO DAILY #5 tablet 02/25/24 - Allergies Allergies/Adverse Reactions: Allergies Allergy/AdvReac Type Severity Reaction Status Date / Time No Known Drug Allergies Allergy Verified 02/25/24 11:57 - Social History Does the pt smoke?: No Smoking Status: Never smoker Does the pt drink ETOH?: No Does the pt have substance abuse?: No - Immunizations Immunizations are current?: Yes - POLST Patient has POLST: No PD ED PE NORMAL - Vitals Vital signs reviewed: Yes - General General: Alert and oriented X 3, No acute distress, Well developed/nourished - HEENT HEENT: Pharynx benign - Respiratory Respiratory: No respiratory distress, Clear bilaterally - Abdomen Abdomen: Soft, Non tender - Derm Derm: Normal color, Warm and dry, Other (antecutital areaas and around neck with red, flat, irregular shaped rashes without vesicles. Itchy. c/w hives. ) Results - Vitals Vitals: Vital Signs - 24 hr 02/25/24 02/25/24 11:52 13:55 Temperature 36.8 C 36.2 C L Heart Rate 61 78 Respiratory 16 20 Rate Blood Pressure 115/71 121/77 O2 Saturation 100 100 Oxygen O2 Source Room air - Labs Labs: Laboratory Tests 02/25/24 12:13 Urine HCG, Qual NEGATIVE PD Medical Decision Making - ED course Complexity details: considered differential (itchy rash while on antibiotic. Has possible food allergy exposure 4-5 days ago but has continued with the rash. More likely is ongoing antibiotic. Also she has not had menses and is late, but neg HCG today and having cramping/spotting. Consider hormonal irregularlity. ), d/w patient, d/w beverage sales consultant (Dr. Conley visitor information assistant for ELECTRICAL APPRENTICE, who did agree with idea of 1 month OCP to stimulate regular menstrual cysle. ELECTRICAL APPRENTICE states pt more likely to ovulate well after stopping it. Pt agreeable. ) Departure - Departure Disposition: 01 Home, Self Care Clinical Impression: Allergic reaction, Abdominal cramping, bilateral lower quadrant, Missed menses Condition: Stable Record reviewed to determine appropriate education?: Yes Follow-Up: [facility] [Provider Group] Prescriptions: Betamethasone Dipropionate 1 applic TP BID #30 gm dexAMETHasone [Decadron] 4 mg PO DAILY #5 tablet Norethindrone AC-Eth Estradiol [Loestrin 21 1.5-30 Tablet] 1 tab PO DAILY #1 each Cetirizine [ZyrTEC] 10 mg PO BID #15 tablet Comments: The rash that you are having could be an allergic reaction to the prescription you ate last week. More obvious likely would be the antibiotic you are currently on. There should have been adequate treatment by now with the for the bladder infection and your urine does appear okay now with a negative test as well. As such I would just stop your current antibiotic. Use the Decadron steroid for 2 to 3 days until the rash seems completely resolved. You can do topical betamethasone steroid as well. I would also suggest cetirizine antihistamine twice daily for the next several days. Recheck if the rash is not fully resolved over the next few days. With regard to the lower abdominal/pelvic cramping and lack of menses, I did talk with our corporate secretary on-call who suggested continuing with some anti- inflammatories and adding Tylenol every 4-6 hours if needed for pain but to actually go on a 1 month oral contraceptive. This should help reset the hormonal cycle to have a regular period and then after that we will actually be more likely to conceive as it will stimulate a good release the following month. I sent your prescriptions to your preferred pharmacy. Return if not a proving well or having other problems. Forms: PCP List Discharge Date/Time: 02/25/24 13:56
[2024-02-25 12:16] VITALS: O2SAT 100
[2024-02-25 12:22] LABS: HCG UR QUAL NEGATIVE
[2024-02-25] MEDS: CETIRIZINE 10 MG TABLET PO STA (13:09)
[2024-02-25] MEDS: dexAMETHasone 4 MG TABLET PO STA (13:09)
[2024-02-25 14:00] VITALS: BP 121/77
== END 2024-02-25 13:56 | disposition home or self-care (01) ==
LOC: ED 11:40
DX: T78.40XA Allergy, unspecified, initial encounter (principal); X58.XXXA Exposure to other specified factors, initial encounter; R10.32 Left lower quadrant pain; R10.31 Right lower quadrant pain; N91.2 Amenorrhea, unspecified
CPT/HCPCS: 81025; 99283; A9270; J8540

== ENCOUNTER 2024-03-01 14:02 | Emergency (ER) | payer OTHER ==
[2024-03-01 14:44] LABS: BASOPHILS % (AUTO) 0.4 %; EOSINOPHILS % (AUTO) 1.8 %; HCT - HEMATOCRIT 38.6 % (37.0-47.0); HGB - HEMOGLOBIN 12.7 g/dL (12.0-16.0); LYMPHOCYTES % (AUTO) 42.1 %; MEAN CORPUSCULAR HEMOGLOBIN 30.4 pg (27.0-31.0); MEAN CORPUSCULAR HGB CONC 32.9 g/dL (32.0-36.0); MEAN CORPUSCULAR VOLUME 92.3 fL (81.0-99.0); MEAN PLATELET VOLUME 9.2 fL (7.9-10.8); MONOCYTES % (AUTO) 8.4 %; NEUTROPHILS % (AUTO) 46.7 %; PLT - PLATELET COUNT 325 10^3/uL (130-450); RED BLOOD COUNT 4.18 10^6/uL (4.20-5.40); RED CELL DISTRIBUTION WIDTH 12.9 % (12.0-15.0); WHITE BLOOD COUNT 14.7 x10^3/uL (4.8-10.8)
[2024-03-01 14:48] LABS: ABNORMAL LYMPHS % (MANUAL) 0 %; BAND NEUTROPHILS % (MANUAL) 0 %
[2024-03-01 14:54] LABS: ALBUMIN 4.3 g/dL (3.2-5.5); ALBUMIN/GLOBULIN RATIO 1.6 (1.0-2.2); ALKALINE PHOSPHATASE 74 IU/L (42-121); ALT ALANINE AMINOTRANSFERASE 46 IU/L (10-60); AST ASPARTATE AMINOTRANSFERASE 20 IU/L (10-42); BILIRUBIN,TOTAL 0.5 mg/dL (0.2-1.0); BUN - BLOOD UREA NITROGEN 11 mg/dL (6-20); CALCIUM 9.2 mg/dL (8.5-10.3); CARBON DIOXIDE - CO2 26 mmol/L (21-32); CHLORIDE 107 mmol/L (101-111); CREATININE 0.6 mg/dL (0.6-1.3); GFR - MDRD 126 (>89); GLUCOSE 91 mg/dL (74-104); LIPASE 13 U/L (11-82); POTASSIUM 3.6 mmol/L (3.5-4.5); SODIUM 140 mmol/L (135-145)
[2024-03-01 15:01] LABS: TROPONIN I HIGH SENSITIVITY < 2.3 ng/L (2.3-14.8)
[2024-03-01 15:21] LABS: HCG,QUALITATIVE BLOOD NEGATIVE
[2024-03-01 15:58] LABS: EOSINOPHILS # (MANUAL) 0.4 10^3/uL (0-0.7); LYMPHOCYTES # (MANUAL) 8.1 10^3/uL (1.5-3.5); LYMPHOCYTES % (MANUAL) 51 %; MONOCYTES # (MANUAL) 0.9 10^3/uL (0.0-1.0); NEUTROPHILS # (MANUAL) 5.3 10^3/uL (1.5-6.6); REACTIVE LYMPHS % (MANUAL) 4 %
[2024-03-01 15:59] LABS: DIFFERENTIAL COMMENT MANUAL DIFFERENTIAL; PLATELET ESTIMATE, MANUAL NORMAL (130-450,000) (NORMAL); PLATELET MORPHOLOGY NORMAL APPEARANCE (NORMAL); RBC MORPHOLOGY (MULTIPLE) NORMAL APPEARANCE (NORMAL)
--- NOTE | 2024-03-01 16:17 | ED Physician Documentation ---
PD HPI SYNCOPE - Stated complaint Stated Complaint: FAINTING,NAUSEA,HUYNH - Chief complaint Chief Complaint: Neuro - History obtained from History obtained from: Patient - History of Present Illness Witnessed: Witnessed Timing - onset: Last night Duration: Minutes (she was in shower just starting (so not hot/etc) and felt lightheaded with nausea and then seen to faint. with her and held her and lowered to chair, so no head impact. Pt remained foggy "in and out" for about 20 minutes though, per spouse, but still sitting in chair. improved laid down.) Preceding symptoms: Light headed, Generalized weakness. No: Headache, Chest pain, Palpitations, Abdominal pain Associated symptoms: Headache (headache developed afterward and persists into this moring with light sensitive, nausea. No focal weakness.), Nausea / vomiting. No: Chest pain Contributing factors: Recent med change (cetirizne and decadron for allergic reaction 4 days prior. Also started on OCP due to irregular cramping and spotting, with 3 day normal menses in the interval.). No: Decreased PO intake, Exertion Similar symptoms before: Diagnosis (she states has had occasional migraine type headaches without formal disagnosis. No prior syncopal episodes though.) Review of Systems Constitutional: denies: Fever, Chills Nose: denies: Rhinorrhea / runny nose, Congestion Throat: denies: Sore throat Cardiac: denies: Chest pain / pressure, Palpitations Respiratory: denies: Cough Neurologic: denies: Focal weakness, Numbness PD PAST MEDICAL HISTORY - Past Medical History Past Medical History: Yes Cardiovascular: None Respiratory: None Neuro: Migraines (occasional without formal diagnosis. Takes OTCs for them. ) Endocrine/Autoimmune: None GI: None [employer]CISION [employer]UMENT [employer]ER: None : None HEENT: None Psych: None Musculoskeletal: None Derm: Other drug resistant infections - Past Surgical History Past Surgical History: No - Present Medications Home Medications: Ambulatory Orders Medication Instructions Recorded Confirmed Ibuprofen [Motrin] 600 mg PO TID PRN #25 tab 02/19/24 02/25/24 Ondansetron Odt [Zofran] 4 mg TL Q6H PRN #10 tablet 02/19/24 02/25/24 cephALEXin [Keflex] 500 mg PO TID #15 cap 02/19/24 02/25/24 Betamethasone Dipropionate 1 applic TP BID #30 gm 02/25/24 Cetirizine [ZyrTEC] 10 mg PO BID #15 tablet 02/25/24 Norethindrone AC-Eth Estradiol 1 tab PO DAILY #1 each 02/25/24 [Loestrin 21 1.5-30 Tablet] dexAMETHasone [Decadron] 4 mg PO DAILY #5 tablet 02/25/24 Ondansetron Odt [Zofran] 4 mg TL Q6H PRN #10 tablet 03/01/24 - Allergies Allergies/Adverse Reactions: Allergies Allergy/AdvReac Type Severity Reaction Status Date / Time No Known Drug Allergies Allergy Verified 03/01/24 14:16 - Social History Does the pt smoke?: No Smoking Status: Never smoker Does the pt drink ETOH?: No Does the pt have substance abuse?: No - Immunizations Immunizations are current?: Yes - POLST Patient has POLST: No PD ED PE NORMAL - Vitals Vital signs reviewed: Yes (mild hypotensive, though prior BPs on recent visits are low. 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 Relevant findings are: Rate: Rate (enter#) (66) Rhythm: NSR [place]: Normal Intervals: Normal CT QRS: Normal Ischemia: Normal ST segments. No: ST elevation c/w ischemia, ST depression Compare to prior EKG: Old EKG unavailable - Labs Labs: Laboratory Tests 03/01/24 03/01/24 03/01/24 14:28 14:32 14:38 WBC 14.7 H RBC 4.18 L Hgb 12.7 Hct 38.6 MCV 92.3 MCH 30.4 MCHC 32.9 RDW 12.9 Plt Count 325 MPV 9.2 Neut # (Auto) Not Reportable Lymph # (Auto) Not Reportable [place] # (Auto) Not Reportable Eos # (Auto) Not Reportable Baso # (Auto) Not Reportable Absolute Nucleated RBC Not Reportable Total Counted 100 Band Neuts % (Manual) 0 Reactive Lymphs % (Man) 4 Abnorm Lymph % (Manual) 0 Nucleated RBC % Not Reportable Neutrophils # (Manual) 5.3 Lymphocytes # (Manual) 8.1 H Monocytes # (Manual) 0.9 Eosinophils # (Manual) 0.4 Basophils # (Manual) 0.0 Differential Comment MANUAL DIFFERENTIAL Platelet Estimate NORMAL (130-450,000) Platelet Morphology NORMAL APPEARANCE RBC Morph Micro Appear NORMAL APPEARANCE Sodium Potassium Chloride Carbon Dioxide Anion Gap BUN Creatinine Estimated GFR (MDRD) Glucose POC Whole Bld Glucose 90 Calcium Total Bilirubin AST ALT Alkaline Phosphatase Troponin I High Sens Total Protein Albumin Globulin Albumin/Globulin Ratio Lipase Serum HCG, Qual NEGATIVE 03/01/24 14:38 WBC RBC Hgb Hct MCV MCH MCHC RDW Plt Count MPV Neut # (Auto) Lymph # (Auto) [place] # (Auto) Eos # (Auto) Baso # (Auto) Absolute Nucleated RBC Total Counted Band Neuts % (Manual) Reactive Lymphs % (Man) Abnorm Lymph % (Manual) Nucleated RBC % Neutrophils # (Manual) Lymphocytes # (Manual) Monocytes # (Manual) Eosinophils # (Manual) Basophils # (Manual) Differential Comment Platelet Estimate Platelet Morphology RBC Morph Micro Appear Sodium 140 Potassium 3.6 Chloride 107 Carbon Dioxide 26 Anion Gap 7.0 BUN 11 Creatinine 0.6 Estimated GFR (MDRD) 126 Glucose 91 POC Whole Bld Glucose Calcium 9.2 Total Bilirubin 0.5 AST 20 ALT 46 Alkaline Phosphatase 74 Troponin I High Sens < 2.3 L Total Protein 7.0 Albumin 4.3 Globulin 2.7 Albumin/Globulin Ratio 1.6 Lipase 13 Serum HCG, Qual PD Medical Decision Making - ED course Complexity details: reviewed old records (the sequence of recent visits and meds. ), considered differential (syncope in shower. Recent ED visits for UTI/ chemical , then allergic reaction Rx with steroid/cetirizine, and now syncope with headache. Spouse says he caught her passing out and lowered her, so no head impact. Prolonged confusion though he had her sitting up during that. Improved when lay), d/w patient ED course: The patient has been seen recently for initially some cystitis type symptoms and general weakness. She also had had a faintly positive home test. test here was negative and ultrasound did not show any acute abnormalities. She was treated for what sound like a sinus infection with cephalexin. She was then seen 4 days ago for some itching and rash around the neck and forearms. It had a mild hive-like appearance. Presumed allergic reaction to the antibiotic and that was withheld as her symptoms were improved. She had also been on it likely long enough to treat the infection. She was prescribed dexamethasone and cetirizine. She states she was feeling okay yesterday and then last evening when head into the shower she started to feel lightheaded and her partner states she did have a fainting. He caught her from falling and there was no injury. He placed her sitting upright in bed and states she still seemed a little pale and foggy in thinking without fully becoming alert for about 10 minutes or so. Finally did become more alert. Today she is having some headache with nausea and light sensitivity. History of occasional migraines in the past. She does have generally low blood pressure but is running approximately 93-99 systolic here at triage and then initial vitals. She states she does feel a bit lightheaded. She was given IV fluids and was feeling less symptomatic lower blood pressure still just a bit over 100 systolic. She was given Toradol and 5 mg Compazine IV and had resolution of her headache and light sensitivity and nausea. It does therefore sound migraine-like. Unclear whether the aura of it contributed to some of the lightheadedness and syncope. However she does seem to be improved from her rash and I think she can stop the cetirizine. She had 1 day left on the dexamethasone. She probably should continue the oral contraceptive. Unclear that whether that was contributing to the migraine or just coincidental. However she had had a period now of typical light menstrual flow for 3 to 4 days once starting the medicine. Ideally would be good for her to finish 3 weeks but if she continues with some nausea feeling she can discontinue it. Off duty tomorrow. Stay well-hydrated. Stop the dexamethasone and cetirizine. Ondansetron if needed for nausea. Departure - Departure Disposition: 01 Home, Self Care Clinical Impression: Syncope and collapse, Migrainous headache without aura, Low blood pressure reading Condition: Stable Record reviewed to determine appropriate education?: Yes Instructions: ED Fainting Unkn Cause Follow-Up: [facility] [Provider Group] Prescriptions: Ondansetron Odt [Zofran] 4 mg TL Q6H PRN #10 tablet PRN Reason: Nausea / Vomiting Comments: Your headache symptoms do sound migraine-like and did seem to get improved with medications we typically use for that which was an anti-inflammatory and a nausea medicine. Unclear the cause of your fainting spell last night. I would assume some effect of recent medications. If your allergic reaction is been resolved, then I would discontinue the cetirizine antihistamine and the dexamethasone steroid (assuming there is still some dosing left of those). Tylenol or ibuprofen if needed for headache or pains. Rest off work tomorrow. Stay well-hydrated. I would continue with the oral contraceptive. If you continue with notable nausea, it could be from the oral contraceptive and you could stop that in a few days as well though ideally would be to finish out the 1 month of it. I wrote a prescription for ondansetron to use if needed for nausea. Stay well- hydrated otherwise. Regular diet. Follow-up with your primary care in the next couple of days, call for an appointment. Forms: PCP List, Activity restrictions Discharge Date/Time: 03/01/24 19:23
[2024-03-01] MEDS: PROCHLORPERAZINE 10 MG/2 ML VIAL IVP STA (16:58)
[2024-03-01] MEDS: KETOROLAC 15 MG/ML VIAL IVP STA (16:58)
[2024-03-01] MEDS: SODIUM CHLORIDE 0.9% 1,000 ML IV STA (16:59)
[2024-03-01] MEDS: LACTATED RINGERS 500 ML IV ONE (18:14)
[2024-03-01 19:14] VITALS: BP 92/61; O2SAT 98
== END 2024-03-01 19:23 | disposition home or self-care (01) ==
LOC: ED 14:02
DX: R55 Syncope and collapse (principal); G43.909 Migraine, unspecified, not intractable, without status migrainosus; I95.9 Hypotension, unspecified
CPT/HCPCS: 36415; 80053; 83690; 84484; 84703; 85025; 93005; 96361; 96374; 99284; J7120